=== PATIENT | female | born 1960 | race Caucasian/White ===

== ENCOUNTER 2017-09-22 15:41 | Emergency (ER) | payer OTHER ==
[2017-09-22] MEDS: KETOROLAC 30 MG INJ IM (16:25)
[2017-09-22] MEDS: HYDROCODONE/APAP (5/325) TAB PO (16:25)
== END 2017-09-22 17:46 | disposition home or self-care (01) ==
LOC: FTE 15:41
DX: M79.604 Pain in right leg (principal); J45.909 Unspecified asthma, uncomplicated
CPT/HCPCS: 73562; 73610-RT; 96372; 99284-25